=== PATIENT | male | born 1970 | race African-American/Black ===

== ENCOUNTER 2019-09-07 02:53 | Emergency (ER) | payer MEDICAID, OTHER ==
[~2019-09-07] VITALS: Ht 165.1 cm; Wt 72.6 kg
[~2019-09-07 02:53] MED LIST: QUETIAPINE FUMA25 MG ORAL; SEROQUEL200 MG ORAL
--- NOTE | 2019-09-07 02:59 | NUR ---
ED Nurse Note: Pt brought in by [id number] from [facility] [place], pt c/o of bilateral foot pain r/t blisters and open wound on the bottom of his foot. VSS.
[2019-09-07] MEDS ORDERED: Bacitracin Oint UD TOPIC ONE (03:03)
[2019-09-07] MEDS ORDERED: CEPHALEXIN500 MG ORAL (03:05)
--- NOTE | 2019-09-07 03:05 | Emergency Room Report ---
History of Present Illness General Chief Complaint: Lower Extremity Injury Source: Patient Present Illness [facility] This a 48-year-old male with a history of bipolar. He is also homeless. He presents with chief plaint of right foot pain. He said this been ongoing for over a month but worse tonight. He said he has been walking a lot. Pain to the bottom of the foot. He said he has a cut there. No drainage. No fever chills but no nausea no vomiting. Pain is 8 out of 10. Worse with walking. Better with rest. No trauma. Allergies: Coded Allergies: NO KNOWN ALLERGIES (Unverified Allergy, Unknown, 01/26/15) COVID-19 Screening Contact w/high risk pt: No Recent Travel to affected area: No Experienced COVID-19 symptoms?: No COVID-19 Testing performed [employer]ER: No Patient History Past Medical History: see triage record, old chart reviewed, psych hx Past Surgical History: other Pertinent Family History: none Social History: Reports: smoking Immunizations: other Reviewed Nursing Documentation: PMH: Agreed; PSxH: Agreed Nursing Documentation-PMH History Of Psychiatric Problem: Yes - BIPOLAR Review of Systems Eye: Denies: eye pain, blurred vision ENT: Denies: ear pain, nose congestion, throat swelling Respiratory: Denies: cough, shortness of breath Cardiovascular: Denies: chest pain, palpitations Gastrointestinal: Denies: abdominal pain, diarrhea, nausea, vomiting Musculoskeletal: Reports: muscle pain; Denies: back pain, joint pain Skin: Denies: rash Neurological: Denies: headache, numbness Endocrine: Denies: increased thirst, increased urine Hematologic/Lymphatic: Denies: easy bruising All Other Systems: negative except mentioned in HPI Physical Exam Vital Signs Date Time Temp Pulse Resp B/P (MAP) Pulse Ox O2 Delivery O2 Flow Rate FiO2 09/07/19 02:53 97.7 90 18 121/74 (90) 97 Room Air Vitals normal Sp02 EP Interpretation: reviewed, normal General Appearance: well appearing, no apparent distress, alert Head: normocephalic, atraumatic Eyes: bilateral eye PERRL, bilateral eye EOMI ENT: hearing grossly normal, normal pharynx Neck: full range of motion, supple, no meningismus Respiratory: chest non-tender, lungs clear, normal breath sounds Cardiovascular #1: regular rate, rhythm, no murmur Gastrointestinal: normal bowel sounds, non tender, no mass, no organomegaly, no bruit, non-distended Musculoskeletal: back normal, normal range of motion, gait/station normal, other - Right foot: The sole of the foot is very dirty. He has superficial laceration over the mid fifth metatarsal bone area. No foreign body. Does appear to be old. No drainage. There is no blistering. Psychiatric: mood/affect normal Medical Decision Making Diagnostic Impression: Primary Impression: Foot pain, right ER Course Patient presents with right foot pain. Most likely secondary to her blister and it. No evidence of any infection. Will discharge home. Patient does not want to go to correction. He said he just want something to eat and drink. He is want his foot to be cleaned and dressed. Last Vital Signs Date Time Temp Pulse Resp B/P (MAP) Pulse Ox O2 Delivery O2 Flow Rate FiO2 09/07/19 02:53 97.7 90 18 121/74 (90) 97 Room Air Status: improved Disposition: HOME, SELF-CARE Condition: Stable Scripts Cephalexin* (KEFLEX*) 500 Mg Capsule 500 MG ORAL TID, #21 CAP Prov: Dm Enciso MD 09/07/19 Additional Instructions: Keep wound clean. Follow-up with your Dr. in 7 days. Return if worse. Dm Enciso MD Sep 07, 2019 03:05
[2019-09-07 03:10] VITALS: BP 121/74
--- NOTE | 2019-09-07 03:10 | NUR ---
ER DISCHARGE NOTE: Patient is cleared to be discharged per ERMD, pt is aox4, on room air, with stable vital signs. pt was given dc and prescription instructions, pt was able to verbalize understanding, pt id band removed. pt is able to ambulate with steady gait. pt took all belongings.
[2019-09-07] MEDS ORDERED: Neosporin Oint Ud Pkt TOPIC ONE (03:15)
== END 2019-09-07 03:10 | disposition home or self-care (01) ==
LOC: EDBD 02:53 → EMR 03:03
DX: M25.571 Pain in right ankle and joints of right foot (principal); S91.114A Laceration without foreign body of right lesser toe(s) without damage to nail, initial encounter; X58.XXXA Exposure to other specified factors, initial encounter; Y92.9 Unspecified place or not applicable; F17.200 Nicotine dependence, unspecified, uncomplicated; F31.9 Bipolar disorder, unspecified
CPT/HCPCS: 99282